=== PATIENT | female | born 1960 | race Caucasian/White ===

== ENCOUNTER 2016-09-28 23:12 | Observation (INO) | payer BC ==
--- NOTE | ~2016-09-28 | DS ---
Discharge Summary [address] [place]. [address] NAME: HUGH COY : 56 STATUS : DIS Bhaskar PAT#: [id number] AGE: 55 ADM/REG DATE : 09/28/16 MR#: [id number] REPORT SERV DATE: 09/30/16 DICTATED BY: KARIN DOBSON DATE: 09/29/16 REPORT STATUS : Draft TRANSCRIBED BY: MODL DATE: 09/29/16 ADMISSION DATE: 09/28/2016 DISCHARGE DATE: 09/29/2016 PRINCIPAL DIAGNOSIS: Atypical migraine with transient neurological deficits. SECONDARY DIAGNOSES: Chest pain noncardiac, anxiety state. HISTORY OF PRESENT ILLNESS: Please see Dr. Garcia's dictation 09/28/2016. HOSPITAL COURSE: Admitted with acute left-sided weakness with chest pain, tingling sensation, severe headache. MRI was negative. Carotid ultrasound was negative. Stress test was negative, she has had negative cath in the recent past as well for similar symptoms. The patient was found to have a very strong family history of seizure disorder, and her history was very typical for an atypical/complex migraine with the transient neurological deficits. She says she has had neurologic deficits before, this was the worst particular episode. It was instructed that we could not do much about this particular episode that would resolve spontaneously, that going home, headache control, sleep would be the best order of business but then therapeutic prophylaxis of the events with Topamax was prescribed 50 mg a day, titrating to 50 mg b.i.d. next week and following up with Dr. Corey Johnson at first available appointment regarding her ongoing migraine prophylaxis. TAQUERIA/DAVIS Karin Dobson M.D. / [id number] CC: Nigel Curran Jr, MD Nabil Cyleman, M.D. Nathan B. Wyatt, MD
--- NOTE | ~2016-09-28 | HP ---
History And Physical [id number] [place]. [address] NAME: HUGH COY : 56 STATUS : DIS Bhaskar PAT#: [id number] AGE: 55 ADM/REG DATE : 09/28/16 MR#: [id number] REPORT SERV DATE: 09/29/16 DICTATED BY: SAÚL GILLILAND JENNIFER DATE: 09/29/16 REPORT STATUS : Draft TRANSCRIBED BY: MODL DATE: 09/29/16 DATE OF ADMISSION: 09/28/2016 HVAC LEAD: Dr. Mireles and Dr. Stanley. SENIOR SYSTEMS ARCHITECT: Dr. Toth. CHIEF COMPLAINT: Left-sided numbness and tingling and chest pain. HISTORY OF PRESENT ILLNESS: This is a 55-year-old lady with history of hypertension, presenting with a left-sided numbness and tingling along with chest pain. The patient reports that she has had chronic left-sided facial numbness and tingling for the past four to five years. The patient also has this chronic left-sided facial droop, and also over the past year or so, the patient has developed several falls from being off balance, particularly falling to the left side. What really concerned the patient was since about two weeks ago the patient started having left-sided upper and lower extremity numbness and tingling that comes and goes. The patient was also having some chest pains that is pressure like. The patient decided to come to the ER for further evaluation and care. In the ER, the patient was found to be afebrile and hemodynamically stable. Initial lab evaluation was all completely benign and the patient also had a normal CT of the head. The patient was seen at [facility] ER, and they requested the patient be transferred here for further evaluation and care. PAST MEDICAL HISTORY: Upon pertinent past medical history reviewing, the patient carries a thick folder of all the studies that she has had done. It looks like the patient has gotten multiple EGD and colonoscopies as well as multiple MRIs, multiple cardiac caths, and multiple stress tests. Notably, they are all very benign. It appears, the patient has seen multiple specialists as an outpatient for various different complaints. Even here in the hospital, the patient is requesting specifically echocardiogram as well as an MRI of her brain. REVIEW OF SYSTEMS: The patient denies any fevers or chills. Also, 14-point review of systems reviewed and negative other than mentioned above. MEDICATIONS: 1. Coreg 6.25 mg p.o. b.i.d. 2. Cozaar 100 mg p.o. daily. 3. Aldactone 25 mg p.o. daily. 4. Ativan 1 mg p.o. b.i.d. 5. Protonix 40 mg p.o. daily. 6. Pepcid 40 mg p.o. q.h.s. 7. Requip 0.25 mg p.o. at bedtime p.r.n. PAST MEDICAL HISTORY: History And Physical [address] [address] NAME: HUGH COY : 56 STATUS : DIS Bhaskar PAT#: [id number] AGE: 55 ADM/REG DATE : 09/28/16 MR#: [id number] REPORT SERV DATE: 09/29/16 DICTATED BY: SAÚL GILLILAND DATE: 09/29/16 REPORT STATUS : Draft TRANSCRIBED BY: DAVIS DATE: 09/29/16 1. Reported history of peripheral artery disease, but the patient has not had any intervention. 2. Also, reported history of coronary artery disease, but the patient has never had a heart attack or any stents put in. The patient as a matter of fact had to cardiac caths over the past few years that were negative. 3. 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 4. Paroxysmal supraventricular tachycardias. 5. Hypertension. PAST SURGICAL HISTORY: C-sections. FAMILY HISTORY: Multiple different type of types of cancers, but negative family history of CVA or coronary artery disease. SOCIAL HISTORY: The patient does not smoke, drink alcohol, or use any illicit drugs. The patient lives at home with one of her daughters that she takes care of. PHYSICAL EXAMINATION: VITAL SIGNS: Temperature 98.0, Blood pressure 147/78, pulse 75, respiratory rate is 23, saturating 96% on room air. NEURO: The patient is alert and oriented x3 with no focal neurologic deficits. Cranial nerves II through XII intact. The patient does have a mild left-sided facial droop which she says is acute on chronic. GENERAL: The patient is awake, does not appear to be in acute distress, and she is cooperative. NECK: No JVD. No lymphadenopathy. Normal thyroid. CHEST: No midline sternotomy scar and no tenderness to palpation. LUNGS: Clear to auscultation bilaterally with normal respiratory effort on room air. CARDIOVASCULAR: Regular rate and rhythm with no murmurs, rubs, or gallops, and PMI is nondisplaced. ABDOMEN: Soft, nontender, with active bowel sounds and no organomegaly. EXTREMITIES: No edema. Normal distal pulses. No calf tenderness. SKIN: Clean, dry, warm, and intact. LABOIRATORY DATA: Sodium is 139, potassium 3.8, chloride 103, BUN of 10, creatinine of 0.63, glucose 82. LFTs are within normal limits. INR is 1.0. Troponin is less than 0.03. CRP was negative. CBC; white blood cell count was 7.8, hemoglobin 13.9, platelets 239. Urinalysis was negative. Chest x-ray was reportedly within normal limits and CT of the head also reportedly is nonacute. ASSESSMENT AND PLAN: This is a 55-year-old lady presenting with left-sided numbness and tingling and chest pain. 1. Left-sided numbness and tingling involving both upper and lower extremities as well as well left face and left facial droop that is acute on chronic. Clearly the History And Physical [address] [address] NAME: HUGH COY : 56 STATUS : DIS Bhaskar PAT#: [id number] AGE: 55 ADM/REG DATE : 09/28/16 MR#: [id number] REPORT SERV DATE: 09/29/16 DICTATED BY: SAÚL GILLILAND DATE: 09/29/16 REPORT STATUS : Draft TRANSCRIBED BY: MODL DATE: 09/29/16 distribution of her neurologic deficits are atypical at best. 2. Atypical chest pain. 3. Hypertension. 4. Anxiety. 5. Suspected Munchausen syndrome, as the patient has had multiple workup for different complaints. They were all fairly benign. PLAN: My plan is to admit the patient for observation overnight. The patient will be monitored under telemetry and neurologic monitoring per protocol. I will work her up for a TIA as well as chest pain, to be sure and to give reassurance, especially since her most recent workup are all about a year old. Otherwise, for the rest of stable past medical conditions, including hypertension and anxiety, I will continue home medications. Standard DVT prophylaxis. The patient is full code at this time. YSC/MODL Saúl Gilliland MD / [id number] CC: Nigel Curran Jr, MD Dr. Silverman
--- NOTE | ~2016-09-28 | HP ---
History And Physical [address] [facility] [address] NAME: HUGH COY : 56 STATUS : DIS Bhaskar PAT#: [id number] AGE: 55 ADM/REG DATE : 09/28/16 MR#: [id number] REPORT SERV DATE: 09/29/16 DICTATED BY: SAÚL GARCIA DATE: 09/29/16 REPORT STATUS : Draft TRANSCRIBED BY: MODL DATE: 09/29/16 DATE OF ADMISSION: 09/28/2016 CHIEF COMPLAINT: Left-sided numbness and tingling along with a chest pain. HISTORY OF PRESENT ILLNESS: This is a 55-year-old lady with history of hypertension DICTATION ENDS HERE JOSEFA/DAVIS Saúl Garcia MD / [id number] CC: Nigel Curran Jr, MD
[2016-09-28] MEDS ORDERED: COZAAR100 MG PO (23:50)
[2016-09-28] MEDS ORDERED: COREG6 PO (23:50)
[2016-09-28] MEDS ORDERED: PEPCID40 MG PO (23:51)
[2016-09-28] MEDS ORDERED: PROTONIX PO (23:51)
[2016-09-28] MEDS ORDERED: SPIRO25 PO (23:51)
[2016-09-28] MEDS ORDERED: ATV1 PO (23:51)
[2016-09-28] MEDS ORDERED: REQUIP25 PO (23:52)
[2016-09-29 01:50] LABS: BASOPHILS 0.5 %; BASOPHILS ABSOLUTE 0.04 10/3/uL (0.0-0.16); EOSINOPHILS 3.3 %; EOSINOPHILS ABSOLUTE 0.25 10/3/uL (0.0-0.53); HEMATOCRIT 36.3 % (36.0-48.0); HEMOGLOBIN 12.2 g/dL (12.0-16.0); LYMPHOCYTES 34.2 %; LYMPHOCYTES ABSOLUTE 2.56 10/3/uL (0.67-4.30); MANUAL DIFF NO %; MEAN CORPUS HGB CONC 33.6 g/dL (32.0-36.0); MEAN CORPUSCULAR HEMOGLOB 28.5 pg (26.0-34.0); MEAN CORPUSCULAR VOLUME 84.8 fL (80-100); MEAN PLATELET VOLUME 9.3 fL (9.2-13.0); MONOCYTES 5.5 %; MONOCYTES ABSOLUTE 0.41 10/3/uL (0.21-1.20); NEUTROPHILS 56.5 %; NEUTROPHILS ABSOLUTE 4.23 10/3/uL (2.02-8.40); PLATELET COUNT 217 10/3/uL (150-400); RBC DISTRIBUTION WIDTH 13.1 % (12.0-16.0); RED CELL COUNT 4.28 10/6/uL (4.0-5.6); WHITE BLOOD CELLS 7.5 10/3/uL (4.5-10.5)
[2016-09-29 02:00] LABS: INTERNATIONAL NORMAL RATI 1.2 UNITS (-); PROTIME (NOT ORD) 14.6 SEC (12.0-14.5)
[2016-09-29 02:13] LABS: CHOLESTEROL 117 MG/DL (< 200); CPK 44 U/L (0-200); HDL CHOLESTEROL 58 MG/DL (> 49); LDL CHOLESTEROL 41 MG/DL (< 130); NON-HDL CHOLESTEROL 59 MG/DL (< 160); TRIGLYCERIDE 93 MG/DL (< 150); TROPONIN I <0.02 NG/ML (<0.05)
[2016-09-29 02:15] LABS: CK-MB 0.7 NG/ML
[2016-09-29 08:52] LABS: CPK 56 U/L (0-200); TROPONIN I <0.02 NG/ML (<0.05)
[2016-09-29 08:53] LABS: CK-MB < 0.5 NG/ML
[2016-09-29 09:56] LABS: ASCORBIC ACID (UR NOT ORDER) NEG (NEG); BILIRUBIN, URINE NEGATIVE (NEG); KETONE, URINE NEGATIVE (NEG); LEUKOCYTE ESTERASE(NOT OR LARGE (NEG); WBC (NOT ORDERED) (RFLEX) 30 (0-5)
[2016-09-29] MEDS ORDERED: FIORICET 50-301 EACH PO (13:26)
[2016-09-29] MEDS ORDERED: TOPAMAX50 MG PO (13:26)
== END 2016-09-29 15:01 | disposition home or self-care (01) ==
LOC: CDU1 23:12 → CDU2 23:21
PROVIDERS: Internal Medicine
DX: G43.809 Other migraine, not intractable, without status migrainosus (principal); R07.89 Other chest pain; F41.9 Anxiety disorder, unspecified; I10 Essential (primary) hypertension; Z79.899 Other long term (current) drug therapy; I73.9 Peripheral vascular disease, unspecified; I25.10 Atherosclerotic heart disease of native coronary artery without angina pectoris; Z98.890 Other specified postprocedural states
CPT/HCPCS: 70551-52; 71020; 78452; 80061; 81001; 82550; 82553; 83036; 84443; 84484; 85025; 85610; 85730; 87086; 93005; 93017; 93880; 96372; A9270-GY; A9502; G0378